=== PATIENT | female | born 1980 | race Caucasian/White ===

== ENCOUNTER 2018-03-23 06:41 | Day surgery (SDC) | payer BC ==
[~2018-03-23] VITALS: Ht 160 cm; Wt 86.2 kg
[~2018-03-23 06:41] MED LIST: METOPROLOL TART25 MG PO; TOPAMAX100 MG PO; TOPROL XL100 MG PO; ZOLOFT100 MG PO
[2018-03-23 07:31] LABS: HEMATOCRIT 42.6 % (36.0-46.0); HEMOGLOBIN 14.3 G/DL (11.9-15.5); MCH 28.9 PG (29.0-34.0); MCHC 33.6 G/DL (30.0-36.0); MCV 86.1 FL (83-99); PLATELET COUNT 315 K/uL (156-360); RBC DIS.WIDTH-CV 12.6 % (11.8-14.6); RBC DIS.WIDTH-SD 39.8 % (39-53); RED BLOOD COUNT 4.95 M/uL (3.80-5.20); WHITE BLOOD COUNT 9.6 K/uL (4.1-10.2)
[2018-03-28] MEDS ORDERED: PROCHLORPERAZIN10 MG PO (13:47)
== END 2018-03-23 09:20 | disposition home or self-care (01) ==
LOC: CATH 06:41
PROVIDERS: Surgery
PROC: B543ZZA Ultrasonography of Right Jugular Veins, Guidance (ICD-10-PCS; principal; 2018-03-23)
PROC: 0JH63WZ Insertion of Totally Implantable Vascular Access Device into Chest Subcutaneous Tissue and Fascia, Percutaneous Approach (ICD-10-PCS; principal; 2018-03-23)
PROC: 05HM33Z Insertion of Infusion Device into Right Internal Jugular Vein, Percutaneous Approach (ICD-10-PCS; principal; 2018-03-23)
DX: Z45.2 Encounter for adjustment and management of vascular access device (principal); I87.8 Other specified disorders of veins; C50.912 Malignant neoplasm of unspecified site of left female breast; Z87.891 Personal history of nicotine dependence; I47.2 Ventricular tachycardia
CPT/HCPCS: 80053; 85027; C1751; C1894; J0690; J1644; J2250; J3010; S0020

== ENCOUNTER 2018-04-03 02:02 | Inpatient (IN) | payer BC ==
[~2018-04-03] VITALS: Ht 160 cm; Wt 85.5 kg
[~2018-04-03 02:02] MED LIST changes: +PROCHLORPERAZIN10 MG PO
[2018-04-03 02:40] LABS: HEMATOCRIT 43.7 % (36.0-46.0); HEMOGLOBIN 14.1 G/DL (11.9-15.5); MCH 28.4 PG (29.0-34.0); MCHC 32.3 G/DL (30.0-36.0); MCV 87.9 FL (83-99); PLATELET COUNT 289 K/uL (156-360); RBC DIS.WIDTH-SD 41.8 % (39-53); RED BLOOD COUNT 4.97 M/uL (3.80-5.20); WHITE BLOOD COUNT 13.6 K/uL (4.1-10.2)
[2018-04-03 02:50] LABS: ALBUMIN 4.2 g/dL (3.2-4.8); CHLORIDE 107 mEq/L (99-109); POTASSIUM 4.1 mEq/L (3.7-5.4); SODIUM 137 mEq/L (136-147)
[2018-04-03 02:53] LABS: GLUCOSE 92 mg/dL (70-99); TOTAL PROTEIN 7.9 g/dL (6.4-8.3)
[2018-04-03 02:55] LABS: TOTAL BILIRUBIN 0.6 mg/dL (0.0-1.0)
[2018-04-03 02:56] LABS: ALKALINE PHOSPHATASE 152 IU/L (3-129); CREATININE 0.7 mg/dL (0.6-1.3); GFR ESTIMATE (CALCULATED) > 59 mL/min/
[2018-04-03 02:57] LABS: UREA NITROGEN (BUN) 7 mg/dL (9-23)
[2018-04-03 02:58] LABS: AST (GOT) 70 IU/L (2-34)
[2018-04-03 03:05] LABS: ALT (GPT) 107 IU/L (3-49); QUANTITATIVE HCG < 4.0 MIU/ML
[2018-04-03 03:17] LABS: CREATINE KINASE 47 IU/L (1-294)
[2018-04-03 04:36] LABS: ACETAMINOPHEN (TYLENOL) < 10 MCG/ML (10-30)
[2018-04-03 07:29] VITALS: BP 104/52
[2018-04-03 09:29] LABS: APPEARANCE CLEAR ((CLEAR)); BILIRUBIN NEGATIVE; BLOOD NEGATIVE; COLOR STRAW ((YELLOW)); GLUCOSE (STRIP) NEGATIVE; KETONES NEGATIVE; LEUKOCYTES NEGATIVE; NITRITE NEGATIVE; PROTEIN (STRIP) NEGATIVE; SPECIFIC GRAVITY 1.008 (1.000-1.030); UCUL ADDED? NO; UROBILINOGEN 0.2 MG/DL (0.2-1.0)
[2018-04-03 10:19] LABS: C DIFF TOXIN NEGATIVE (NEGATIVE)
[2018-04-03] MEDS ORDERED: LEVSIN0.125 MG PO (12:40)
[2018-04-03 19:27] VITALS: BP 123/65
[2018-04-04 00:58] VITALS: BP 104/49
[2018-04-04 03:38] VITALS: BP 103/64
[2018-04-04 06:50] VITALS: BP 110/64
[2018-04-04 07:48] LABS: HEMOGLOBIN 12.7 G/DL (11.9-15.5); MCH 28.2 PG (29.0-34.0); MCHC 31.8 G/DL (30.0-36.0); MCV 88.9 FL (83-99); NRBC (%) 0.1 /100 WBC (0-0); PLATELET COUNT 262 K/uL (156-360); RBC DIS.WIDTH-CV 12.9 % (11.8-14.6); RBC DIS.WIDTH-SD 42.5 % (39-53); WHITE BLOOD COUNT 20.8 K/uL (4.1-10.2)
[2018-04-04 08:07] LABS: ALBUMIN 3.6 G/DL (3.2-4.8); ALKALINE PHOSPHATASE 115 IU/L (3-129); ALT (GPT) 80 IU/L (3-49); AST (GOT) 55 IU/L (2-34); CHLORIDE 107 MEQ/L (99-109); CREATININE 0.5 MG/DL (0.6-1.3); DIRECT BILIRUBIN 0.1 mg/dL (0.0-0.3); GFR ESTIMATE (CALCULATED) > 59 mL/min/; GLUCOSE 78 mg/dL (70-99); POTASSIUM 3.9 MEQ/L (3.7-5.4); SODIUM 140 MEQ/L (136-147); TOTAL BILIRUBIN 0.4 MG/DL (0.0-1.0); TOTAL PROTEIN 6.1 G/DL (6.4-8.3); UREA NITROGEN (BUN) 4 mg/dL (9-23)
[2018-04-04 08:10] LABS: THYROTROPIN (TSH) 2.8 MIU/L (0.4-5.5)
[2018-04-04 08:18] LABS: ABS NEUTROPHIL COUNT 11.5; ANISOCYTOSIS NONE SEEN; ATYPICAL LYMPHOCYTE 1.3 %; BAND NEUTROPHILS 22.8 % (0-8.0); BASOPHILS 0.4 %; EOSINOPHIL ABS CT 0.4; EOSINOPHILS 2.1 % (0-5.0); LYMPHOCYTES 16.3 % (15.0-45.0); METAMYELOCYTES 5.6 %; MONOCYTES 10.3 % (0-9.0); MYELOCYTES 8.6 %; PLAT.SUFFICIENCY ADEQUATE; SEG.NEUTROPHILS 32.6 % (46.0-76.0)
[2018-04-04] MEDS ORDERED: XIFAXAN550 MG PO (11:13)
== END 2018-04-04 12:48 | disposition home or self-care (01) | DRG 392 ==
LOC: EME 02:02 → EDOF 05:11 → ENRESERV 05:13 → CANRESERV 05:13 → ENRESERV 05:40 → 5EAST 07:14
PROVIDERS: Emergency Medicine; Hospitalist; Internal Medicine Gastroenterology
DX: R11.2 Nausea with vomiting, unspecified (principal); K52.1 Toxic gastroenteritis and colitis; R50.2 Drug induced fever; M89.8X0 Other specified disorders of bone, multiple sites; T45.1X5A Adverse effect of antineoplastic and immunosuppressive drugs, initial encounter; E86.0 Dehydration; C50.919 Malignant neoplasm of unspecified site of unspecified female breast; R74.0 Nonspecific elevation of levels of transaminase and lactic acid dehydrogenase [LDH]; R79.89 Other specified abnormal findings of blood chemistry; M79.1 Myalgia; R43.2 Parageusia; K21.9 Gastro-esophageal reflux disease without esophagitis; F41.9 Anxiety disorder, unspecified; Z87.891 Personal history of nicotine dependence
CPT/HCPCS: 71046; 74177; 76705; 80048; 80053; 80076; 81003; 82550; 82941 90; 84443; 84586 90; 84702; 85025; 85027; 85651; 87040; 87177; 87493; 87506; 99281; 99285; G0480; J1170; J1650; J2405; J3010; J7030; Q0164; S0028